=== PATIENT | male | born 1955 | race Caucasian/White ===

== ENCOUNTER 2017-10-09 22:02 | Emergency (ER) | payer OTHER ==
[~2017-10-09] VITALS: Ht 175.3 cm; Wt 104.3 kg
[2017-10-09 22:58] LABS: BASOPHIL COUNT 0.1 K/uL (0-0.1); EOSINOPHIL (%) 2.9 % (0-5); EOSINOPHIL COUNT 0.4 K/uL (0-0.3); HEMATOCRIT 42.3 % (38.0-50.0); IMMATURE GRANULOCYTE (%) 0.4 % (0.0-0.7); IMMATURE GRANULOCYTE COUNT 0.1 K/uL; INSTRUMENT ABS NEUTROPHIL CT 7.8 K/uL; LYMPHOCYTE COUNT 3.3 K/uL (1.0-2.8); MCH 31.5 PG (29.0-34.0); MCHC 34.8 G/DL (30.0-36.0); MCV 90.6 FL (86-99); MEAN PLAT.VOLUME 9.7 uM^3 (9.0-12.4); MONOCYTE (%) 5.6 % (3-12); MONOCYTE COUNT 0.7 K/uL (0-0.8); NEUTROPHIL (%) 63.2 % (45-76); NEUTROPHIL COUNT 7.8 K/uL (1.8-6.4); PLATELET COUNT 272 K/uL (156-360); RBC DIS.WIDTH-CV 12.1 % (11.8-14.6); RED BLOOD COUNT 4.67 M/uL (4.00-5.50); WHITE BLOOD COUNT 12.3 K/uL (4.1-10.2)
[2017-10-09 23:13] LABS: CHLORIDE 103 mEq/L (99-109); POTASSIUM 3.5 mEq/L (3.7-5.4); SODIUM 137 mEq/L (136-147)
[2017-10-09 23:16] LABS: GLUCOSE 131 mg/dL (70-99)
[2017-10-09 23:17] LABS: ANION GAP 9 MEQ/L (2-14); TOTAL BILIRUBIN 0.4 mg/dL (0.0-1.0)
[2017-10-09 23:19] LABS: ALKALINE PHOSPHATASE 107 IU/L (3-129); GFR ESTIMATE (CALCULATED) > 59 mL/min/ (58.99-99999)
[2017-10-09 23:20] LABS: UREA NITROGEN (BUN) 10 mg/dL (9-23)
[2017-10-09 23:28] LABS: TROP-I INTERPRETATION NEGATIVE; TROPONIN-I < 0.01 ng/mL (0.0-0.30)
[2017-10-10 00:53] VITALS: BP 140/82
== END 2017-10-10 00:55 | disposition home or self-care (01) ==
LOC: EME 22:02
PROVIDERS: Emergency Medicine
DX: I10 Essential (primary) hypertension (principal); R20.2 Paresthesia of skin; I45.10 Unspecified right bundle-branch block
CPT/HCPCS: 80053; 84484; 85025; 93005; 99281; 99284